=== PATIENT | female | born 1960 | race Caucasian/White ===

== ENCOUNTER → 2016-09-26 13:52 | Outpatient (CLI) | payer BC | END | disposition home or self-care (01) | LOC: D.MRI 13:52 | DX: M79.671 Pain in right foot (principal) ==

== ENCOUNTER → 2018-04-13 14:15 | Outpatient (CLI) | payer OTHER | END | disposition home or self-care (01) | LOC: D.CT 14:15 | DX: R91.1 Solitary pulmonary nodule (principal) ==